=== PATIENT | female | born 1980 | race American Indian/Alaskan Native ===

== ENCOUNTER 2017-01-15 13:12 | Emergency (ER) | payer BC ==
[2017-01-15 13:39] VITALS: BP 113/70
== END 2017-01-15 13:35 | disposition left against medical advice (07) ==
LOC: ED 13:12
DX: K08.89 Other specified disorders of teeth and supporting structures (principal); Z53.21 Procedure and treatment not carried out due to patient leaving prior to being seen by health care provider

== ENCOUNTER 2017-01-22 20:40 | Emergency (ER) | payer BC ==
[2017-01-22 20:55] VITALS: BP 123/73
== END 2017-01-23 02:08 | disposition left against medical advice (07) ==
LOC: ED 20:40
DX: K04.7 Periapical abscess without sinus (principal); Z53.21 Procedure and treatment not carried out due to patient leaving prior to being seen by health care provider